=== PATIENT | male | born 2000 | race Caucasian/White ===

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

== ENCOUNTER 2023-05-18 00:32 | Emergency (ER) | payer OTHER, SELFPAY ==
[2023-05-18] MEDS ORDERED: Cephalexin 500 MG CAP ONE (00:58)
[2023-05-18] MEDS ORDERED: traMADol HCl 50 MG TAB ONE (00:58)
== END 2023-05-18 01:10 | disposition home or self-care (01) ==
LOC: MADERS 00:32
DX: K04.7 Periapical abscess without sinus (principal)
CPT/HCPCS: 99282